=== PATIENT | female | born 1990 | race Caucasian/White ===

== ENCOUNTER 2017-08-21 12:49 | Emergency (ER) | payer MEDICAID, OTHER ==
[2017-08-21 13:01] VITALS: BP 119/65
--- NOTE | 2017-08-21 13:52 | UC ---
Upper Extremity HPI - HPI Summary HPI Summary: LEFT ARM DISCOMFORT X 1 DAY + NUMBNESS OF THE LEFT ARM AND FACE +NAUSEA , NO VOMITING NO CHEST PAIN , NO PALPITATION - History of Current Complaint Chief Complaint: UCHeadache Stated Complaint: LEFT ARM PAIN Time Seen by Provider: 08/21/17 13:24 Hx Obtained From: Patient Hx Last Menstrual Period: 07/19/17 Onset/Duration: Gradual Onset, Lasting Days - 1, Still Present Severity Initially: Moderate Severity Currently: Moderate Pain Intensity: 0 Location Of Pain: Is Discrete @ - LEFT ARM / LEFT SIDE OF FACE Character: Unable to Describe - NUMBNESS Aggravating Factor(s): Nothing Alleviating Factor(s): Nothing Associated Signs And Symptoms: Positive: Numbness/Tingling - LEFT ARM. Negative : Swelling, Redness, Bruising, Fever, Weakness - Allergies/Home Medications Allergies/Adverse Reactions: Allergies Allergy/AdvReac Type Severity Reaction Status Date / Time No Known Allergies Allergy Verified 01/28/14 11:02 Home Medications: Home Medications Acetaminophen [Mapap] 2,000 mg PO 08/21/17 [History] Dextroamphetamine (NF) TAB [Dexedrine TAB*] 10 mg 08/21/17 [History] PMH/Surg Hx/FS Hx/Imm Hx Psychological History: Anxiety, Depression - Surgical History Surgical History: Yes Surgery Procedure, Year, and Place: uterine polyps - Family History Known Family History: Negative: Diabetes - Social History Alcohol Use: Occasionally Substance Use Type: None Substance Use Comment - Amount & Last Used: 01/27/14 Smoking Status (MU): Light Every Day Tobacco Smoker Type: Cigarettes Amount Used/How Often: 1/2 ppd Length of Time of Smoking/Using Tobacco: 4 yrs Have You Smoked in the Last Year: Yes Review of Systems Constitutional: Negative Skin: Negative Eyes: Negative ENT: Negative Respiratory: Negative Is Patient Immunocompromised?: No All Other Systems Reviewed And Are Negative: Yes Physical Exam Triage Information Reviewed: Yes Appearance: Well-Appearing, No Pain Distress, Well-Nourished Vital Signs: Initial Vital Signs Temp 98.9 F 08/21/17 12:53 Pulse 92 08/21/17 12:53 Resp 14 08/21/17 12:53 BP 119/65 08/21/17 12:53 Pulse Ox 100 08/21/17 12:53 Vital Signs Reviewed: Yes Eyes: Positive: Conjunctiva Clear ENT: Positive: Normal ENT inspection, Hearing grossly normal, Pharynx normal, TMs normal Neck: Positive: Supple, Nontender, No Lymphadenopathy Respiratory: Positive: Chest non-tender, Lungs clear, Normal breath sounds Cardiovascular: Positive: RRR, No Murmur, Pulses Normal Abdominal Exam: Normal Skin Exam: Normal Diagnostics - EKG Cardiac Rate: NL Cardiac Rhythm: Sinus: Normal Ectopy: None ST Segment: Normal Upper Extremity Course/Dx - Differential Dx/Diagnosis Provider Diagnoses: PARASTHESIA LEFT ARM Discharge - Sign-Out/Discharge Documenting (check all that apply): Discharge - Discharge Plan Condition: Stable Disposition: HOME Patient Education Materials: Paresthesia (ED) Forms: *Work Release Referrals: Nicki Camargo NP [Primary Care Provider] - If Needed Additional Instructions: MAYBE DUE TO STRESS, CONT. WITH REST, INCREASE FLUID, INTAKE MAY TAKE TYLENOL NEEDED FOR PAIN FOLLOW UP NEEDED - Billing Disposition and Condition Condition: STABLE Disposition: HOME
== END 2017-08-21 13:58 | disposition home or self-care (01) ==
LOC: UCCORT 12:49
DX: R20.0 Anesthesia of skin (principal); F17.210 Nicotine dependence, cigarettes, uncomplicated
CPT/HCPCS: 99211; G0463

== ENCOUNTER 2017-11-25 07:59 | Emergency (ER) | payer OTHER ==
[2017-11-25 08:16] VITALS: BP 104/54
[2017-11-25] MEDS ORDERED: Lidocaine 2% VISCOUS* 15 ML UDC SWISH SPIT PRN (08:34)
[2017-11-25] MEDS ORDERED: Lidocaine 2% VISCOUS* 15 ML UDC ONE (08:38)
--- NOTE | 2017-11-25 08:41 | UC ---
Throat Pain/Nasal Keyur HPI - HPI Summary HPI Summary: states she was diagnosed with Strept throat 3 days ago by PCP, but has been taking penicillin twice a day and it has given her diarrhea without any relief of symptoms, has a lot of pain on her throat. Denies fever, vomiting or dizziness. - History of Current Complaint Chief Complaint: UCRespiratory Stated Complaint: ST Time Seen by Provider: 11/25/17 08:26 Hx Obtained From: Patient Hx Last Menstrual Period: 11/03/17 ?: No Onset/Duration: Gradual Onset, Lasting Days Severity: Moderate Pain Intensity: 5 Cough: Nonproductive Associated Signs & Symptoms: Positive: Dysphagia - Epiglottits Risk Factors Epiglottis Risk Factors: Negative - Allergies/Home Medications Allergies/Adverse Reactions: Allergies Allergy/AdvReac Type Severity Reaction Status Date / Time No Known Allergies Allergy Verified 11/25/17 08:16 Home Medications: Home Medications Methylphenidate TAB* [Ritalin TAB*] 10 mg PO DAILY 11/25/17 [History Confirmed 11/25/17] Penicillin VK TAB* [Penicillin VK 250 mg Tab*] 1 tab BID 11/25/17 [History Confirmed 11/25/17] ValACYclovir (*) [Valtrex 500 mg (*)] 500 mg DAILY 11/25/17 [History Confirmed 11/25/17] buPROPion TAB* [Wellbutrin TAB*] 100 mg QAM 11/25/17 [History Confirmed 11/25/17 ] lamoTRIgine TAB(*) [Lamictal TAB(*)] 50 mg QAM 11/25/17 [History Confirmed 11/25] PMH/Surg Hx/FS Hx/Imm Hx Previously Healthy: Yes Psychological History: Bipolar Disorder - Surgical History Surgical History: Yes Surgery Procedure, Year, and Place: uterine polyps - Family History Known Family History: Negative: Diabetes - Social History Alcohol Use: Weekly Alcohol Amount: 1-2 drinks/week Substance Use Type: None Substance Use Comment - Amount & Last Used: 01/27/14 Smoking Status (MU): Light Every Day Tobacco Smoker Type: Cigarettes Amount Used/How Often: 3 cigs/day Length of Time of Smoking/Using Tobacco: 4 yrs Have You Smoked in the Last Year: Yes Review of Systems Constitutional: Negative ENT: Sore Throat Respiratory: Cough All Other Systems Reviewed And Are Negative: Yes Physical Exam Triage Information Reviewed: Yes Appearance: Well-Appearing, No Pain Distress, Well-Nourished Vital Signs: Initial Vital Signs Temp 98.3 F 11/25/17 08:09 Pulse 91 11/25/17 08:09 Resp 16 11/25/17 08:09 BP 104/54 11/25/17 08:09 Pulse Ox 100 11/25/17 08:09 Vital Signs Reviewed: Yes ENT: Positive: Pharyngeal erythema, TMs normal, Uvula midline, Other - using hearing aids Neck: Positive: Supple, Nontender, No Lymphadenopathy Respiratory: Positive: Chest non-tender, Lungs clear, Normal breath sounds, No respiratory distress Cardiovascular: Positive: RRR, No Murmur, Pulses Normal, Brisk Capillary Refill Abdomen Description: Positive: Nontender Bowel Sounds: Positive: Present Throat Pain/Nasal Course/Dx - Course Course Of Treatment: Patient to stop PCN VK and start amoxil for ease of use BID. Continue tylenol as needed, administered viscous lidocaine swish and spit for symptomatic relief - Differential Dx/Diagnosis Provider Diagnoses: streptococcal pharyngitis Discharge - Sign-Out/Discharge Documenting (check all that apply): Discharge/Admit/Transfer - Discharge Plan Condition: Stable Disposition: HOME Prescriptions: Amoxicillin PO (*) [Amoxicillin 875 MG (*)] 875 mg PO BID 10 Days #20 tab Patient Education Materials: Strep Throat (ED), Amoxicillin (By mouth) Referrals: Nicki Camargo NP [Primary Care Provider] - - Billing Disposition and Condition Condition: STABLE Disposition: Home
== END 2017-11-25 08:44 | disposition home or self-care (01) ==
LOC: UCCORT 07:59
DX: J02.0 Streptococcal pharyngitis (principal)
CPT/HCPCS: 99212; G0463